=== PATIENT | male | born 1985 | race African-American/Black ===

== ENCOUNTER 2017-04-23 18:48 | Emergency (ER) | payer BC ==
[~2017-04-23] VITALS: Ht 170.2 cm; Wt 110.7 kg
[2017-04-23] MEDS ORDERED: DIVA250T84 PO (18:59)
[2017-04-23] MEDS ORDERED: SERT-1 PO (18:59)
--- NOTE | 2017-04-23 19:04 | ER Report ---
History and Physical Time Seen By MD: 19:04 Hx. of Stated Complaint: PATIENT HAS BEEN HAVING ABDOMINAL CRAMPING, DIARRHEA AND VOMITING SINCE YESTERDAY. PATIENT STATES HE FEELS LIKE HE IS "CRAPPING RAZOR BLADES". THERE IS BLOOD IN STOOL AND IT IS MUCOIDISH. HPI/ROS CHIEF COMPLAINT: Diarrhea HISTORY OF PRESENT ILLNESS: This is a 32-year-old male who presents to the emergency department for diarrhea. Patient states that yesterday morning when he left [place] he developed some abdominal pain that progressed into diarrhea yesterday and even worse today he's had multiple episodes of diarrhea now with blood and discomfort in his rectum. Patient states that he has a jellylike discharge in the stool, no foul odor. Patient states that he's had bright red blood on the toilet paper with darker blood in the stool. No clots. He's had aches, chills, has felt feverish but no documented fevers. One episode of emesis with nausea. Patient denies urinary discomfort. REVIEW OF SYSTEMS: Constitutional: As above. Eyes: No discharge. ENT: No sore throat. Cardiovascular: No chest pain, no palpitations. Respiratory: No cough, no shortness of breath. Gastrointestinal: As above. Genitourinary: No hematuria. Musculoskeletal: No back pain. Skin: No rashes. Neurological: No headache. Allergies: Coded Allergies: morphine (Verified Allergy, Intermediate, ITCHING/SKIN BURNING, 04/23/17) Home Meds Active Scripts Tramadol Hcl (TRAMADOL HCL) 50 Mg Tablet, 50-100 MG PO Q4-6H, #10 TAB Prov:TARI BERGMAN CRYSTAL GROWER-BC 04/23/17 Reported Medications Sertraline Hcl (ZOLOFT) 50 Mg Tablet, 1 TAB PO QDAY, TAB 04/23/17 Divalproex Sodium (DEPAKOTE) 250 Mg Tablet.dr, 250 MG PO BID, TAB 04/23/17 Past Medical/Surgical History Patient has a past medical and surgical history of seizures, migraines, hypertension, hypercholesterolemia, glasses, bipolar, depression, lumbar fusion with titanium rods Reviewed Nurses Notes: Yes Hx Substance Use Disorder: No Hx Alcohol Use: Yes (OCCASSIONAL) Constitutional Vital Sign - Last 24 Hours 04/23/17 04/23/17 04/23/17 04/23/17 18:55 19:00 19:03 19:18 Temp 98.2 Pulse 98 94 98 Resp 24 B/P (MAP) 154/92 152/87 (108) Pulse Ox 92 92 95 O2 Delivery Room Air 04/23/17 04/23/17 04/23/17 04/23/17 19:30 19:33 19:48 20:00 Pulse 94 88 B/P (MAP) 135/80 (98) 135/74 (94) Pulse Ox 94 92 04/23/17 04/23/17 04/23/17 04/23/17 20:03 20:18 20:23 20:30 Pulse 89 92 90 B/P (MAP) 132/72 (92) Pulse Ox 93 91 91 04/23/17 04/23/17 20:38 20:43 Pulse 89 96 Pulse Ox 92 91 Intake and Output 04/23/17 04/23/17 04/24/17 15:00 23:00 07:00 Intake Total 1000 ml Balance 1000 ml Physical Exam General Appearance: The patient is alert, has no immediate need for airway protection and no signs of toxicity. Eyes: Pupils equal and round no pallor or injection. ENT, Mouth: Mucous membranes are moist. Mild erythema to the posterior oropharynx, no tonsillar hypertrophy. Respiratory: There are no retractions, lungs are clear to auscultation. Cardiovascular: Regular rate and rhythm, no murmurs, clicks or rubs. Gastrointestinal: Abdomen is soft with tenderness to bilateral lower quadrants as well as left upper with palpation, no masses, hyperactive bowel sounds. Neurological: Alert and oriented 4. Moving all extremity. No focal neuro deficits. Following all commands. Skin: Warm and dry, no rashes. Musculoskeletal: Neck is supple non tender. Extremities are nontender, nonswollen and have full range of motion. DIFFERENTIAL DIAGNOSIS: After history and physical exam differential diagnosis was considered for abdominal pain including but not limited to appendicitis, cholecystitis, gastritis and urinary tract infection. Medical Decision Making Data Points Result Diagram: 04/23/17192004/23/171920 Laboratory Hematology Test 04/23/17 19:21 Red Blood Count 5.61 M/uL (4.00-5.60) Mean Corpuscular Volume 89.4 fL (80.0-96.0) Mean Corpuscular Hemoglobin 30.0 pg (26.0-33.0) Mean Corpuscular Hemoglobin Concent 33.5 g/dL (32.0-36.0) Red Cell Distribution Width 13.4 % (11.5-14.5) Mean Platelet Volume 9.0 fL (7.2-11.1) Neutrophils (%) (Auto) 63.3 % (39.4-72.5) Lymphocytes (%) (Auto) 28.0 % (17.6-49.6) Monocytes (%) (Auto) 4.4 % (4.1-12.4) Eosinophils (%) (Auto) 3.3 % (0.4-6.7) Basophils (%) (Auto) 1.0 % (0.3-1.4) Nucleated RBC Relative Count (auto) 0.1 /100WBC Neutrophils # (Auto) 7.8 K/uL (2.0-7.4) Lymphocytes # (Auto) 3.4 K/uL (1.3-3.6) Monocytes # (Auto) 0.5 K/uL (0.3-1.0) Eosinophils # (Auto) 0.4 K/uL (0.0-0.5) Basophils # (Auto) 0.1 K/uL (0.0-0.1) Nucleated RBC Absolute Count (auto) 0.01 K/uL Urine Color Yellow Urine Clarity Clear Urine pH 5.0 pH (4.8-9.5) Urine Specific Jeff 1.021 Urine Protein Negative mg/dL (NEGATIVE) Urine Glucose (UA) Negative mg/dL (NEGATIVE) Urine Ketones Negative mg/dL (NEGATIVE) Urine Blood Small (NEGATIVE) Urine Nitrite Negative (NEGATIVE) Urine Bilirubin Negative (NEGATIVE) Urine Urobilinogen Negative mg/dL (0.2-1.9) Urine Leukocyte Esterase Negative (NEGATIVE) Urine RBC <1 /HPF (0-2/HPF) Urine WBC <1 /HPF (0-5/HPF) Urine Squamous Epithelial Cells None /LPF (</=FEW) Urine Bacteria Negative /HPF (NONE-FEW) Urine Mucus None /HPF (NONE-FEW) Sodium Level 138 mmol/L (137-145) Potassium Level 3.8 mmol/L (3.5-5.0) Chloride Level 101 mmol/L (98-107) Carbon Dioxide Level 26 mmol/L (22-30) Blood Urea Nitrogen 11 mg/dl (9-21) Creatinine 0.90 mg/dl (0.66-1.25) Glomerular Filtration Rate Calc > 60.0 Random Glucose 107 mg/dl (75-110) Calcium Level 9.2 mg/dl (8.4-10.2) Total Bilirubin 0.3 mg/dl (0.2-1.3) Aspartate Amino Transf (AST/SGOT) 25 U/L (0-35) Alanine Aminotransferase (ALT/SGPT) 35 U/L (0-56) Alkaline Phosphatase 108 U/L (0-126) Total Protein 7.9 gm/dl (6.3-8.2) Albumin 4.3 g/dl (3.5-5.0) Influenza Type A Antigen Negative (NEGATIVE) Influenza Type B Antigen Negative (NEGATIVE) Chemistry Test 04/23/17 19:21 White Blood Count 12.3 k/uL (4.5-11.0) Red Blood Count 5.61 M/uL (4.00-5.60) Hemoglobin 16.8 g/dL (14.0-18.0) Hematocrit 50.1 % (42.0-52.0) Mean Corpuscular Volume 89.4 fL (80.0-96.0) Mean Corpuscular Hemoglobin 30.0 pg (26.0-33.0) Mean Corpuscular Hemoglobin Concent 33.5 g/dL (32.0-36.0) Red Cell Distribution Width 13.4 % (11.5-14.5) Platelet Count 294 K/uL (150-450) Mean Platelet Volume 9.0 fL (7.2-11.1) Neutrophils (%) (Auto) 63.3 % (39.4-72.5) Lymphocytes (%) (Auto) 28.0 % (17.6-49.6) Monocytes (%) (Auto) 4.4 % (4.1-12.4) Eosinophils (%) (Auto) 3.3 % (0.4-6.7) Basophils (%) (Auto) 1.0 % (0.3-1.4) Nucleated RBC Relative Count (auto) 0.1 /100WBC Neutrophils # (Auto) 7.8 K/uL (2.0-7.4) Lymphocytes # (Auto) 3.4 K/uL (1.3-3.6) Monocytes # (Auto) 0.5 K/uL (0.3-1.0) Eosinophils # (Auto) 0.4 K/uL (0.0-0.5) Basophils # (Auto) 0.1 K/uL (0.0-0.1) Nucleated RBC Absolute Count (auto) 0.01 K/uL Urine Color Yellow Urine Clarity Clear Urine pH 5.0 pH (4.8-9.5) Urine Specific Jeff 1.021 Urine Protein Negative mg/dL (NEGATIVE) Urine Glucose (UA) Negative mg/dL (NEGATIVE) Urine Ketones Negative mg/dL (NEGATIVE) Urine Blood Small (NEGATIVE) Urine Nitrite Negative (NEGATIVE) Urine Bilirubin Negative (NEGATIVE) Urine Urobilinogen Negative mg/dL (0.2-1.9) Urine Leukocyte Esterase Negative (NEGATIVE) Urine RBC <1 /HPF (0-2/HPF) Urine WBC <1 /HPF (0-5/HPF) Urine Squamous Epithelial Cells None /LPF (</=FEW) Urine Bacteria Negative /HPF (NONE-FEW) Urine Mucus None /HPF (NONE-FEW) Glomerular Filtration Rate Calc > 60.0 Calcium Level 9.2 mg/dl (8.4-10.2) Total Bilirubin 0.3 mg/dl (0.2-1.3) Aspartate Amino Transf (AST/SGOT) 25 U/L (0-35) Alanine Aminotransferase (ALT/SGPT) 35 U/L (0-56) Alkaline Phosphatase 108 U/L (0-126) Total Protein 7.9 gm/dl (6.3-8.2) Albumin 4.3 g/dl (3.5-5.0) Influenza Type A Antigen Negative (NEGATIVE) Influenza Type B Antigen Negative (NEGATIVE) Urinalysis Test 04/23/17 19:21 Urine Color Yellow Urine Clarity Clear Urine pH 5.0 pH (4.8-9.5) Urine Specific Jeff 1.021 Urine Protein Negative mg/dL (NEGATIVE) Urine Glucose (UA) Negative mg/dL (NEGATIVE) Urine Ketones Negative mg/dL (NEGATIVE) Urine Blood Small (NEGATIVE) Urine Nitrite Negative (NEGATIVE) Urine Bilirubin Negative (NEGATIVE) Urine Urobilinogen Negative mg/dL (0.2-1.9) Urine Leukocyte Esterase Negative (NEGATIVE) Urine RBC <1 /HPF (0-2/HPF) Urine WBC <1 /HPF (0-5/HPF) Urine Squamous Epithelial Cells None /LPF (</=FEW) Urine Bacteria Negative /HPF (NONE-FEW) Urine Mucus None /HPF (NONE-FEW) ED Course/Re-evaluation Clinical Indication for ER IV: Hydration, IV Access ED Course The patient was admitted to a room. A history and physical were obtained. Differential diagnoses were considered. A CBC, CMP and UA were obtained. Lab studies were unremarkable, except mild elevation in WBC's, 12.3. The patient was given a 1 L normal saline bolus 30 mg IV Toradol. 1000 mg Tylenol. I did review the lab studies with the patient. I did tell him this is likely a gastroenteritis and will likely run its course however if his diarrhea begins to increase as well as the blood that he should follow-up in the nearest emergency department or clinic as he is traveling for work. Patient states he is feeling better at this time, tired and is ready to go. I did give the patient tramadol for his discomfort as well as a prescription for tramadol. I also encouraged him to follow-up with his primary care provider when he returns to [place]. The patient has not questions or concerns at this time and was discharged home. Decision to Disposition Date: Apr 23, 2017 Decision to Disposition Time: 20:48 Depart Departure Latest Vital Signs Vital Signs Date Time Temp Pulse Resp B/P (MAP) Pulse Ox O2 Delivery O2 Flow Rate FiO2 04/23/17 20:43 96 91 04/23/17 20:30 132/72 (92) 04/23/17 18:55 98.2 24 Room Air Impression: Primary Impression: Gastroenteritis Condition: Improved Disposition: HOME OR SELF-CARE New Scripts Tramadol Hcl (TRAMADOL HCL) 50 Mg Tablet 50-100 MG PO Q4-6H, #10 TAB Prov: TARI BERGMAN Calli CRYSTAL GROWER-BC 04/23/17 Patient Instructions: Gastroenteritis (ED) Additional Instructions: Drink plenty of fluids. Try a clear liquid diet for the next 24 hours. Slowly progress into a regular diet. Take the tramadol for severe pain. Can take ibuprofen or Tylenol as needed for discomfort. As you are traveling around for work and if your symptoms become worse please follow-up with the nearest emergency department or clinic. When you return to [place] please follow-up with your primary care provider. [facility] return to the [facility] ED for worsening symptoms. [employer] ATTENDANT/PA consult with MD: Verbally MD Consult Note: TARI ReedP- Apr 23, 2017 19:04
[2017-04-23] MEDS ORDERED: NS(*) 0.9% 1000 ML BAG 1,000 ML IV ONE (19:21)
[2017-04-23] MEDS ORDERED: KETOROLAC 30 MG/ML VIAL IVP ONE (19:25)
[2017-04-23] MEDS ORDERED: ONDANSETRON 4 MG/2 ML VIAL IVP ONE (19:25)
[2017-04-23 19:37] LABS: PLATELET COUNT, AUTOMATED 294 K/uL (150-450)
[2017-04-23] MEDS ORDERED: ACETAMINOPHEN 500 MG TAB PO ONE (20:15)
[2017-04-23 20:30] VITALS: BP 132/72
[2017-04-23] MEDS ORDERED: traMADol 50 MG TAB TH 2 TAB/BOTTLE PO ONE (20:50)
[2017-04-23] MEDS ORDERED: TRAM-420 PO (20:51)
== END 2017-04-23 21:02 | disposition home or self-care (01) ==
LOC: ER 19:07
DX: K52.9 Noninfective gastroenteritis and colitis, unspecified (principal)
CPT/HCPCS: 81001; 85025; 87502; 96361; 96374; 96375; 99284; C9399; J1885; J2405; J7030; 82040; 82247; 82310; 82374; 82435; 82565; 82947; 84075; 84132; 84155; 84295; 84450; 84460; 84520